=== PATIENT | female | born 2000 | race Caucasian/White ===

== ENCOUNTER 2022-05-31 13:32 | Emergency (ER) | payer BC, MEDICAID, SELFPAY ==
[2022-05-31 13:40] VITALS: BP 138/77; PULSE 83; RESP 18; TEMP 36.7; O2SAT 98; BMI 24.9
--- NOTE | 2022-05-31 13:45 | ED_ITS ---
HPI - Headache General: Chief Complaint: Headache Stated Complaint: severe headache Time Seen by Provider: 05/31/22 13:45 History of Present Illness: Ms. Hewitt is a 22-year-old female with history of headaches who presents to the emergency department due to headache. Onset of symptoms was subacute at approximately 930 without known specific provoking event. She endorses throbbing moderate to severe intensity pain mostly behind her eyes with some radiation on the left side of her head and to the base of her skull. Associated photophobia and sonophobia. Denies preceding fevers or other infectious symptoms. Denies head trauma. Patient is up-to-date on vaccines. Does have a history of similar when she was younger though has not had a headache in a number of years like this. No other specific changes in health, exacerbating, or alleviating factors identified. Onset (ago): hour(s) Onset description: gradually Location: left, frontal, temporal and occipital Severity: severe Quality & Timing: throbbing Exacerbating factors: light and noise Associated symptoms: Reports no associated symptoms Review of Systems General: Reports: 10 or more systems reviewed and unremarkable except in HPI and below PFSH ED PFSH: Medical History (Updated 05/31/22 @ 16:18 by Duke Villaseñor MD) Enlarged thyroid gland Surgical History (Updated 05/31/22 @ 14:16 by Duke Villaseñor MD) No significant past surgical history Physical Exam Const: COMMON NORMALS: alert GENERAL APPEARANCE: cooperative and well developed HENMT: COMMON NORMALS: normocephalic and atraumatic HEAD & SCALP: normocephalic and atraumatic Eye: COMMON NORMALS: conjunctivae normal CONJUNCTIVA: Yes conjunctivae normal SCLERA: sclerae normal Neck/C-Spine: COMMON NORMALS: supple and no meningeal signs GENERAL: Yes trachea midline Resp: COMMON NORMALS: clear to auscultation bilaterally EFFORT & INSPECTION: Yes able to speak in complete sentences AUSCULTATION: clear to auscultation bilaterally Cardio: COMMON NORMALS: regular rate and regular rhythm RATE: regular rate RHYTHM: regular rhythm GI: COMMON NORMALS: Soft to palpation PALPATION: Yes Soft to palpation and No Tenderness to palpation present (GI) Extremity: GENERAL: Yes normal exam except as noted and No edema Neuro: COMMON NORMALS: moves all extremities SENSORIUM/ORIENTATION: Yes alert and No Orientation impaired MENINGEAL SIGNS: Yes no meningeal signs Psych: COMMON NORMALS: mental status grossly normal and Normal thought process present THOUGHT PROCESS: Normal thought process present Course Vital Signs: Vital signs: Vital Signs Temperature 98.1 F 05/31/22 13:40 Pulse Rate 68 05/31/22 16:38 Respiratory Rate 17 05/31/22 16:38 Blood Pressure 106/70 05/31/22 16:38 Pulse Oximetry 97 05/31/22 16:38 Oxygen Delivery Me thod 05/31/22 13:40 MDM - Headache Medical Decision Making 22-year-old female presenting with headache. Does have a history of migraines however reports that this is worse than typical. Nonfocal neurologic exam and patient is nontoxic, no evidence of meningismus. Headache treatment ordered Laboratory studies without significant abnormality. Initially only modest improvement in symptoms and given patient's description of worse headache than prior imaging is felt to be warranted. CT head negative for acute intracranial pathology. With additional treatment patient significantly improved with near complete resolution of headache. Most likely etiology of patient's symptoms is headache which may be secondary to migraine disorder. The results of ED evaluation were discussed with the patient including prescriptions and/or symptomatic cares (if applicable) including appropriate and responsible use, followup plan, and return precautions. The patient verbalized understanding and felt safe for discharge. Medical Records I reviewed the patient's medical records. Lab Data I reviewed the patient's lab results. : 05/31/22 15:25 05/31/22 15:[address] 05/31/22 14:50 IMPRESSION: 1. No evidence of intracranial hemorrhage or mass effect. 2. No acute intracranial findings. Laboratory Results WBC 6.4 10^3/uL (4.5-13.0) 05/31/22 15:25 RBC 3.82 10^6/uL (4.1-5.3) L 05/31/22 15:25 Hgb 12.0 g/dL (11.5-15.3) 05/31/22 15:25 Hct 36.1 % (37.0-47.0) L 05/31/22 15:25 MCV 94.5 fl (81-99) 05/31/22 15:25 MCH 31.4 pg (28.0-34.0) 05/31/22 15:25 MCHC 33.2 g/dL (30.0-36.0) 05/31/22 15:25 RDW 12.5 % (12.1-15.1) 05/31/22 15:25 Plt Count 280 10^3/cmm (130-400) 05/31/22 15:25 MPV 10.4 fL (7.4-10.4) 05/31/22 15:25 Neut % (Auto) 40.9 % 05/31/22 15:25 Lymph % (Auto) 31.9 % 05/31/22 15:25 [place] % (Auto) 7.6 % 05/31/22 15:25 Eos % (Auto) 17.9 % 05/31/22 15:25 Baso % (Auto) 1.4 % 05/31/22 15:25 Neut # (Auto) 2.62 10^3/uL (1.8-8.0) 05/31/22 15:25 Lymph # (Auto) 2.1 10^3/uL (1.5-6.5) 05/31/22 15:25 [place] # (Auto) 0.5 10^3/uL (0.2-0.9) 05/31/22 15:25 Eos # (Auto) 1.2 10^3/uL (0.0-0.8) H 05/31/22 15:25 Baso # (Auto) 0.1 10^3/uL (0.0-0.1) 05/31/22 15:25 Nucleated RBC % (auto) 0 % 05/31/22 15:25 Nucleated RBCs # 0.0 /100WBC 05/31/22 15:25 Sodium 141 mmol/L (136-145) 05/31/22 15:25 Potassium 4.1 mmol/L (3.5-5.1) 05/31/22 15:25 Chloride 107 mmol/L (98-107) 05/31/22 15:25 Carbon Dioxide 26 mmol/L (22-29) 05/31/22 15:25 Anion Gap 12.1 (5-19) 05/31/22 15:25 BUN 9 mg/dL (6-20) 05/31/22 15:25 Creatinine 0.8 mg/dL (0.5-0.9) 05/31/22 15:25 GFR Calculation 91.4 mL/min (90-130) 05/31/22 15:25 Glucose 86 mg/dL (65-115) 05/31/22 15:25 Calculated Osmolality 290 mOsm/kg (285-295) 05/31/22 15:25 Calcium 8.9 mg/dL (8.5-10.5) 05/31/22 15:25 Total Bilirubin 0.5 mg/dL (0.15-1.2) 05/31/22 15:25 AST 11 U/L (0-32) 05/31/22 15:25 ALT 11 U/L (0-33) 05/31/22 15:25 Alkaline Phosphatase 36 U/L (35-105) 05/31/22 15:25 Total Protein 6.2 g/dL (6.6-8.7) L 05/31/22 15:25 Albumin 3.8 g/dL (3.5-5.2) 05/31/22 15:25 Globulin 2.4 g/dL (1.3-4.6) 05/31/22 15:25 Discharge Plan Discharge Patient Disposition: Home Clinical Impression: Headache Condition: Stable Prescriptions: New Reglan 10 mg tablet 10 mg PO Q6H PRN (Reason: headache) Qty: 28 0RF Discharge Orders: Discharge ED (Routine); Ordered 05/31/22 Ordered By: Duke Villaseñor Discharge Diet: Usual diet Discharge Activity: Increase activity as tolerated Patient Instructions: Migraine Headache (ED), Acute Headache (ED), Pain Management Activity Restrictions/Additional Instructions: Thank you for visiting the emergency department. You were seen evaluated for headache. The exact cause of your headache is unclear though may be related to underlying headache disorder. We are pleased that you had improvement in symptoms in the emergency department. Please follow-up with your primary care provider. Return to the emergency department for worsening symptoms as discussed or anything else that you are concerned about a feel needs emergency department evaluation. Reglan can be combined with Benadryl and [id number] medications such as Tylenol or ibuprofen, please do not exceed the daily recommended dosage of any of these medications and please keep in mind that many namebrand medications contain the same active ingredients. Stand Alone Forms: Work/School Release Coding Level of Care Code ED Toe Stapler for Mattie Fwd Exam Comprehensive
[2022-05-31] MEDS: metoclopramide 5 mg/mL SDV 2 mL 10 MG IVP (14:20)
[2022-05-31] MEDS: ketorolac 30 mg/mL INJ 15 MG IVP ×2 (14:20→15:57)
[2022-05-31] MEDS: diphenhydrAMINE 50 mg/mL SDV 1mL 25 MG IVP (14:20)
[2022-05-31] MEDS: sodium chloride 0.9% 1,000 ML 999 ML IV (14:21)
--- NOTE | 2022-05-31 14:50 | CT_ITS ---
WS: [id number] CT HEAD TECHNIQUE: Noncontrast CT of the head obtained from the skullbase to the vertex. CLINICAL INFORMATION: headache COMPARISON: None. DLP: 990.[address] scans at [facility] use at least one of these dose optimization techniques: automated e xposure control; mA and/or kV adjustment per patient size (includes targeted exams where dose is matc hed to clinical indication); or iterative reconstruction. FINDINGS: No evidence of intracranial hemorrhage or mass effect. Ventricular system and basal cisterns are lara nt. No extra-axial fluid collections. No evidence of mass or mass effect. Normal simon-white different iation. Paranasal sinuses and mastoid air cells are well aerated. .Normal visualized soft tissues. CT/CT head wo con* [id number] IMPRESSION: 1. No evidence of intracranial hemorrhage or mass effect. 2. No acute intracranial findings.
[2022-05-31 15:32] LABS: Basophils # 0.1 10^3/uL (0.0-0.1); Basophils % 1.4 %; Eosinophils # 1.2 10^3/uL (0.0-0.8); Eosinophils % 17.9 %; Hematocrit 36.1 % (37.0-47.0); Lymphocytes # 2.1 10^3/uL (1.5-6.5); Lymphocytes % 31.9 %; Mean Corpuscular HGB Conc 33.2 g/dL (30.0-36.0); Mean Corpuscular Hemoglobin 31.4 pg (28.0-34.0); Mean Corpuscular Volume 94.5 fl (81-99); Mean Platelet Volume 10.4 fL (7.4-10.4); Monocytes # 0.5 10^3/uL (0.2-0.9); Monocytes % 7.6 %; Neutrophils # 2.62 10^3/uL (1.8-8.0); Neutrophils % 40.9 %; Nucleated Red Blood Cells % 0 %; Platelet Count 280 10^3/cmm (130-400); Red Blood Count 3.82 10^6/uL (4.1-5.3); Red Cell Distribution Width 12.5 % (12.1-15.1); White Blood Count 6.4 10^3/uL (4.5-13.0)
[2022-05-31 15:53] LABS: Alanine Aminotransferase 11 U/L (0-33); Albumin Level 3.8 g/dL (3.5-5.2); Alkaline Phosphatase 36 U/L (35-105); Anion Gap 12.1 (5-19); Aspartate Amino Transferase 11 U/L (0-32); Blood Urea Nitrogen 9 mg/dL (6-20); Calcium 8.9 mg/dL (8.5-10.5); Carbon Dioxide 26 mmol/L (22-29); Chloride 107 mmol/L (98-107); Creatinine Clr Calc Pharmacy 104.7065; Globulin 2.4 g/dL (1.3-4.6); Glomerular Filtration Rate 91.4 mL/min (90-130); Glucose 86 mg/dL (65-115); Osmolality Calculated 290 mOsm/kg (285-295); Potassium 4.1 mmol/L (3.5-5.1); Sodium 141 mmol/L (136-145); Total Bilirubin 0.5 mg/dL (0.15-1.2); Total Protein 6.2 g/dL (6.6-8.7)
[2022-05-31 16:38] VITALS: BP 106/70; PULSE 68; RESP 17; O2SAT 97
== END 2022-05-31 16:39 | disposition home or self-care (01) ==
PROVIDERS: Emergency Provider Emergency Medicine
DX: R51.9 Headache, unspecified (principal)
CPT/HCPCS: 36415; 70450; 80053; 85025; 96365; 96375; 96376; 99285; J1200; J1885; J2765; J3475; J7030